=== PATIENT | male | born 1965 | race Caucasian/White ===

== ENCOUNTER 2021-09-27 13:55 | Outpatient (CLI) | payer OTHER, SELFPAY | END 2021-10-01 09:50 | disposition home or self-care (01) | LOC: PHYS 13:58 | PROVIDERS: Family Provider Family Medicine; PCP Family Medicine; Referring Provider Family Medicine; Visit Provider Family Medicine | DX: R20.0 Anesthesia of skin (principal) | CPT/HCPCS: 95886; 95910 ==

== ENCOUNTER 2022-04-02 09:46 | Day surgery (SDC) | payer OTHER, SELFPAY ==
[2022-04-02 09:55] VITALS: BP 150/89; PULSE 73; RESP 18; TEMP 36.4; O2SAT 96; BMI 32.2
[2022-04-02] MEDS: LACTATED RINGERS 1,000 ML 200 ML IV (10:16)
--- NOTE | 2022-04-02 10:30 | SUR.PREOP ---
Patient drank about 4oz of black coffee at 0930. DR Pereira and Dr Encinas notified and report they will have to push it back. Patient is aware and spouse notified.
--- NOTE | 2022-04-02 11:19 | PM.HP.1 ---
History of Present Illness History of Present Illness Date Patient Seen: 04/02/22 Time Patient Seen: 11:19 Chief complaint: SCREENING COLONOSCOPY Narrative: The patient presents for colorectal screening. Colonoscopy 5 years ago reportedly normal. No personal or family history of colon cancer. On further history denies any recent gastrointestinal symptoms. No nausea, vomiting, abdominal pain, loss of appetite, unexplained weight loss, change in bowel habits, or blood per rectum. Patient History Family & Social History Social History: household members spouse Tobacco & Substance use: Smoking Status Never smoker alcohol intake current alcohol intake frequency 0-2 drinks per day Substance Use Type does not use Meds Home Medications and Allergies Home Medications Medication Instructions Recorded Confirmed Type CA PANTOTHENATE/FOLIC ACID/VIT 1 tab PO QDAY ##0 04/21/12 History (MULTIVITAMIN) sodium,potassium,mag sulfates 17.5 See Rx Instructions PO .COMPLEX 04/01/22 Rx gram-3.13 gram-1.6 gram oral soln #354 mL (Suprep Bowel Prep Kit) Lipitor 20 mg PO DAILY 04/02/22 04/02/22 History Allergies Allergy/AdvReac Type Severity Reaction Status Date / Time No Known Drug Allergies Allergy Verified 04/02/22 09:56 Exam Vital Signs (past 8 hours): - 04/02/22 09:55 Temperature 97.6 F Pulse Rate 73 Respiratory Rate 18 Blood Pressure 150/89 H Pulse Oximetry 96 Oxygen Delivery Method Room Air Oxygen Delivery Method Room Air Narrative Exam Narrative: General adult man alert oriented no acute distress Assessment & Plan Assessment & Plan narrative: The patient requires colorectal screening and colonoscopy is recommended. Technical details were discussed. Risks, benefits, alternatives explained. Risks including but not limited to myocardial infarction, aspiration, bleeding, pain, missed lesion, incomplete examination, need for further radiographic studies, colonic perforation, and need for major abdominal surgery were discussed. All questions were answered to their satisfaction, and they are in agreement with this plan. Time Spent With Patient Critical Care time: I spent a total of [] minutes of critical care time on this patient's care today; this time is exclusive of procedural time.
--- NOTE | 2022-04-02 11:20 | PM.OP.COLON ---
Operative Date/Time/Diagnoses Date of procedure: 04/02/22 Time of procedure: 11:21 Pre-op diagnosis: Colorectal screening Post-op diagnosis: same Procedure & Clinicians Study performed: Colonoscopy Same procedure as scheduled: Yes Indications: Colorectal screening Surgeon: Fernando Pereira Procedure Notes Procedure in detail: The history and physical was performed/updated and the patient is ASA class is 2. The procedure was discussed in detail with the patient. Potential risks complications including infection, bleeding, missed diagnosis, perforation, need for surgery, and were explained. Their questions were answered and informed consent was obtained. Patient was brought to the procedure room and placed standard monitoring equipment. The patient's vital signs were monitored continuously throughout the entire procedure. Prior to starting time-out was performed. The patient was placed in the left lateral recumbent position. Procedural sedation was administered by anesthesia. Examination began with a thorough inspection of the perianal area there was no evidence of fissures, fistulae, external hemorrhoids or cutaneous malignancy. The colonoscopy scope was then placed into the anal canal and was advanced to the cecum, which was identified by the ileocecal valve, the appendiceal orifice and the confluence of the taenia. The scope was then slowly withdrawn examining colon thoroughly in all directions, irrigating it of any residual stool. 1. No masses polyps or inflammation 2. Nguyen diverticulosis 3. Internal hemorrhoids The patient tolerated the procedure well. They will be discharged once criteria are met. The prep was of good/excellent quality. The withdrawl time was 7 minutes. Specimen(s): none sent Impression: Normal colonoscopy Post-procedure Recommendations: Colonoscopy in 10 years and High fiber diet Disposition: same day surgery
[2022-04-02 11:48] VITALS: BP 122/80; PULSE 70; RESP 12; TEMP 36.6; O2SAT 95
[2022-04-02 11:52] VITALS: BP 125/80; PULSE 61; RESP 12; O2SAT 94
[2022-04-02 11:57] VITALS: BP 121/84; PULSE 61; RESP 12; TEMP 36.4; O2SAT 95
[2022-04-02 12:06] VITALS: BP 119/80; PULSE 60; RESP 14; TEMP 36.3; O2SAT 96
== END 2022-04-02 12:19 | disposition home or self-care (01) ==
PROVIDERS: Family Provider Family Medicine; PCP Family Medicine; Referring Provider Surgery; Visit Provider Surgery
PROC: 0DJD8ZZ Inspection of Lower Intestinal Tract, Via Natural or Artificial Opening Endoscopic (ICD-10-PCS; CPT 45378; principal; 2022-04-02 10:45)
DX: Z12.11 Encounter for screening for malignant neoplasm of colon (principal); K57.30 Diverticulosis of large intestine without perforation or abscess without bleeding; K64.8 Other hemorrhoids
CPT/HCPCS: 45378; J2704; J3010

== ENCOUNTER → 2022-07-05 08:15 | Outpatient (CLI) | payer OTHER, SELFPAY ==
--- NOTE | 2022-07-05 | DI.CT.S_ITS ---
PROCEDURE: CT SINUS SCREEN WO CON INDICATIONS: Chronic pansinusitis TECHNIQUE: Noncontrast 3.0 mm axial images acquired from the frontal sinuses to the mid-sella, with coronal and sagittal reformats. For radiation dose reduction, the following was used: automated exposure control, adjustment of mA and/or kV according to patient size. COMPARISON: [facility], CT, SINUS SCREEN WO CONTRAST, 08/24/2013, 8:32. FINDINGS: Image quality: Excellent. Maxillary Sinuses: Small retention cysts noted in the floors of both maxillary sinuses measuring up to 8 x 12 mm Ethmoid Air Cells: No bony remodeling or destruction. Sinuses are clear. Sphenoid Sinuses: No bony remodeling or destruction. Sinuses are clear. Frontal Sinuses: No bony remodeling or destruction. Sinuses are clear. Left frontal sinus is not pneumatized Ostiomeatal Complexes: Ostiomeatal complexes are patent. No Radha cells. Miscellaneous: Visualized intra-orbital contents are normal. No amy bullosa or paradoxical turbinate curvature. No nasal septal deviation. Atherosclerotic vascular calcification noted in the cavernous segments of both internal carotid arteries IMPRESSION: Small maxillary sinus retention cysts. Approved by: Samir Lynch M.D. on 07/05/2022 at 14:03
== END ==
PROVIDERS: Family Provider Family Medicine; PCP Family Medicine; Referring Provider Otolaryngology; Visit Provider Otolaryngology
DX: J32.4 Chronic pansinusitis (principal); J34.1 Cyst and mucocele of nose and nasal sinus
CPT/HCPCS: 70486

== ENCOUNTER 2023-09-18 08:20 | Emergency (ER) | payer OTHER, SELFPAY ==
[2023-09-18] VITALS (15 sets, daily range): BP systolic 107–134; BP diastolic 61–80; PULSE 66–73; RESP 15–24; TEMP 36.9; O2SAT 97–100; BMI 32.8
--- NOTE | 2023-09-18 08:27 | EKG_ITS ---
[address] [address] Test Date: 2023-09-18 Pat Name: Patel Bradford Department: [facility] Room: Gender: Male Payment Poster: KIRSTIN : 1965 Requested By: Order Number: [id number] Reading MD: Lenard Bates Measurements Intervals [place] Rate: 66 P: -2 LA: 186 QRS: 1 QRSD: 100 T: 19 QT: 404 QTc: 423 Interpretive Statements Normal sinus rhythm Inferior infarct , age undetermined Electronically Signed On 09-18-2023 17:13:52 PDT by Lenard Bates
--- NOTE | 2023-09-18 08:27 | DI.RAD.S_ITS ---
PROCEDURE: XR CHEST 1V INDICATIONS: chest pain TECHNIQUE: One view of the chest was acquired. COMPARISON: None. FINDINGS: Surgical changes and devices: None. Lungs and pleura: Lungs are clear. No pleural effusions or pneumothorax. Mediastinum: Mediastinal contours appear normal. Heart size is normal. Bones and chest wall: No suspicious bony lesions. Overlying soft tissues appear unremarkable. IMPRESSION: No acute cardiopulmonary abnormality is seen. Dictated by: Audra Palomo MD, PhD on 09/18/2023 at 9:10 Approved by: Audra Palomo MD, PhD on 09/18/2023 at 9:10
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
[2023-09-18 08:42] LABS: Add Manual Diff / Slide Review NO; Basophils Absolute Auto 0 /uL (0-100); Basophils Percent Auto 0.2 % (0-2); Eosinophils Absolute Auto 0 /uL (0-450); Eosinophils Percent Auto 0.4 % (2-4); Hematocrit 38.3 % (41-53); Hemoglobin 12.8 g/dL (13.5-17.5); Lymphocytes Absolute Auto 3400 /uL (1100-4500); Lymphocytes Percent Auto 30.2 % (25-40); Mean Corpuscular HGB Conc 33.5 % (30-36); Mean Corpuscular Hemoglobin 30.9 PG (26-34); Mean Corpuscular Volume 92.4 fL (80-100); Monocytes Absolute Auto 1000 /uL (0-900); Monocytes Percent Auto 8.9 % (3-14); Neutrophils Absolute Auto 6800 /uL (1500-7000); Neutrophils Percent Auto 60.3 % (50-75); Platelet Count 279 X10^3/uL (150-400); Red Blood Cell Count 4.15 X10^6/uL (4.5-5.9); Red Cell Distribution Width 13.1 % (11.6-14.8); White Blood Cell Count 11.3 X10^3/uL (4.5-11.0)
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
[2023-09-18 08:49] LABS: INR 1.1 (0.9-1.3); Prothrombin Time 12.2 SECONDS (9.4-12.5)
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
[2023-09-18 08:52] LABS: PTT Partial Thromboplastin Tim 27 SECONDS (25.1-36.5)
[2023-09-18 08:54] LABS: Alanine Aminotransferase 25 IU/L (<50); Albumin 3.8 g/dL (3.5-5.0); Albumin Globulin Ratio 1.6 (1.0-2.8); Alkaline Phosphatase 56 U/L (38-126); Aspartate Aminotransferase 22 IU/L (17-59); BUN Creatinine Ratio 18.7 (6-22); Bilirubin Total 0.7 mg/dL (0.2-1.3); Blood Urea Nitrogen 20 mg/dL (9-20); Calcium 8.3 mg/dL (8.4-10.2); Carbon Dioxide 27 mmol/L (22-32); Chloride 108 mmol/L (98-107); Creatine Kinase 123 U/L (55-170); Estimated Glomerular Filt Rate > 60 mL/min (>60); Globulin 2.4 g/dL (1.7-4.1); Glucose 151 mg/dL (80-110); HEMOLYSIS < 15 (0-50); Lipase 63 U/L (23-300); Potassium 4.2 mmol/L (3.4-5.1); Sodium 139 mmol/L (137-145); Total Protein 6.2 g/dL (6.3-8.2)
[2023-09-18 09:06] LABS: NT-proBNP (BNP-Adult 18+) 54 pg/mL (<125); Troponin I < 0.012 ng/mL (0.01-0.034)
== END 2023-09-18 10:35 | disposition home or self-care (01) ==
PROVIDERS: Emergency Provider Emergency Medicine; Family Provider Family Medicine; PCP Family Medicine
DX: S70.12XA Contusion of left thigh, initial encounter (principal); R55 Syncope and collapse; R07.9 Chest pain, unspecified; S09.92XA Unspecified injury of nose, initial encounter; V00.141A Fall from scooter (nonmotorized), initial encounter
CPT/HCPCS: 36415; 70450; 70486; 71045; 73502; 80053; 82550; 83690; 83735; 83880; 84484; 85025; 85610; 85730; 93005; 99284

== ENCOUNTER → 2023-09-30 09:24 | Outpatient (CLI) | payer OTHER, SELFPAY ==
--- NOTE | 2023-09-30 09:26 | DI.RAD.S_ITS ---
PROCEDURE: XR ANKLE RT MIN 3V INDICATIONS: ANKLE PAIN TECHNIQUE: 4 views of the ankle were acquired. COMPARISON: [facility], CR, XR FOOT 3 VIEWS WEIGHT BEARING RIGHT, 08/21/2023, 8:55. FINDINGS: Bones: No fractures or dislocations. Ankle mortise is normally aligned. Tiny ossific densities inferior to the medial malleolus. Degenerative changes in the midfoot with dorsal osteophytosis. No suspicious bony lesions. Soft tissues: Small tibiotalar joint effusion. Soft tissue swelling overlying the medial malleolus. Achilles tendon appears normal. Small plantar and Achilles calcaneal enthesophytes. Vascular calcifications. IMPRESSION: Tiny ossific densities inferior to the medial malleolus with soft tissue swelling is suggestive of gout versus a tiny avulsion fracture. If clinically warranted, consider an MRI for further evaluation. Dictated by: Kirsty Salgado M.D. on 09/30/2023 at 14:58 Approved by: Kirsty Salgado M.D. on 09/30/2023 at 15:19
== END ==
PROVIDERS: Family Provider Family Medicine; PCP Family Medicine; Referring Provider Family Medicine; Visit Provider Family Medicine
DX: M25.571 Pain in right ankle and joints of right foot (principal); M79.89 Other specified soft tissue disorders; M77.31 Calcaneal spur, right foot; M25.474 Effusion, right foot
CPT/HCPCS: 73610

== ENCOUNTER 2023-12-05 06:28 | Day surgery (SDC) | payer OTHER, SELFPAY ==
[2023-12-03 07:49] VITALS: BMI 31.9
[2023-12-05 07:04] VITALS: BP 139/89; PULSE 68; RESP 16; TEMP 36.2; O2SAT 96; BMI 31.9
[2023-12-05] MEDS: ACETAMINOPHEN 325 MG TABLET 975 MG PO (07:18)
[2023-12-05] MEDS: LACTATED RINGERS 1,000 ML 42 ML IV (07:19)
[2023-12-05] MEDS: CEFAZOLIN 2 GM/100 ML PREMIX 100 ML IV (07:40)
--- NOTE | 2023-12-05 07:41 | P.OP_ITS ---
Operative Date/Time/Diagnoses Date of procedure: 12/05/23 Time of procedure: 07:41 Pre-op diagnosis: Right great toe soft tissue mass and bunion Post-op diagnosis: other (Right great toe joint gouty arthritis and bunion) Procedure & Clinicians Procedure: Right bunionectomy with gouty tophus tissue excision Same procedure as scheduled: Yes Indications: For 58-year-old male with is enlarged and sore bump on right foot great toe. Area appears to be consistent with bunion as well as soft tissue mass. Conservative measures failed to alleviate his pain and he wished to have surgical intervention at this time. We spoke about the risks and potential complications as well as expected outcomes of the procedure. Consent was signed and there was no contraindications to the procedure at this time. Surgeon: Roberta Russ Click Yes if Unassisted: Yes Anesthesia Type: General Operative Notes Findings: Significant investment in the soft tissue capsule and surrounding area of the joint as well as the rim and medial aspect of the 1st metatarsophalangeal joint of gouty tophus. Closure Type: primary Specimen(s): none sent (a piece of tissue from the foot invested with gouty tophus was placed to send but upon contacting the lab they were unable to accept tissue, only aspirate.) Estimated Blood Loss (mL): 10 Blood products transfused: none Procedure in detail: The patient was brought to the operating room and placed on the operating table in the supine position. Tourniquet was placed about the right ankle. Well padded appropriately aligned. After induction of general anesthesia a 1st metatarsophalangeal area of digital block was performed using the recorded injectables. The right foot and ankle were prepped and draped in the usual aseptic manner. The tourniquet was inflated. Incision was made over the right 1st metatarsal phalangeal joint. The incision was deepened through subcutaneous tissues being careful to identify and retract all vital neurovascular structures. All bleeders were cauterized and ligated as necessary. A medial capsulotomy was performed to the 1st MTPJ exposing the enlarged tissue and large amount of gouty tophus was present. He did also have somewhat of an enlarged 1st metatarsal head medial eminence. There was spurring on the dorsal 1st metatarsophalangeal joint and quite a bit of investment of tophus within the medial 1st metatarsal head. The central aspect of the 1st metatarsal head was clean of gouty tophus. The extensor to the hallux was a little bit attenuated but no tears were noted. The saw was used to resect the medial eminence. A rasp was used to reduce the sharp edges of the bone. As best as was able, I used various techniques to attempt to mobilize and remove the infiltrate from what I could of the gouty tissues. The capsule appeared to be what was making the most amount of enlargement of the soft tissue medially and I was able to thin down some of that capsule to allow for decompression of that location. The area was irrigated with copious amounts normal sterile saline. The great toe was placed in linear alignment and the medial 1st MTP redundant capsule was resected and repaired with Vicryl. The tourniquet was deflated and a prompt hyperemic response was seen in the foot. Deep and subcutaneous closure was closed performed with Vicryl, and Nylon suture to the skin. The foot was dressed with a lightly compressive sterile dressing and splint in alignment. Russell wilcox was then placed in a postoperative shoe and transferred to PACU with vital signs stable Complications: none Post-operative Condition: stable Disposition: PACU Plan for aftercare: Following a period of postoperative monitoring, the patient will be discharged to home on written and oral postoperative instructions including keeping the dressing dry and intact, no greater than 50% weight to the surgical foot, icing and elevating the foot when seated home. DVT prevention techniques have been reviewed. For the 1st postoperative visit the dressing will be changed and close to the 3rd postoperative week we will likely remove the sutures. I reviewed in detail the aspects of the procedure with his nurse will pass this information along to him as well as his who I contacted following the procedure. In regards to gout management, I have suggested that he discuss this with his primary care physician.
--- NOTE | 2023-12-05 07:41 | PM.PREOP ---
Pre-operative Note Interval Note History & Physical reviewed/Exam performed by Physician: Yes Changes to H&P: No
[2023-12-05] MEDS: BUPIVACAINE 0.5% (PF) 30 ML VIAL INJ (07:52)
--- NOTE | 2023-12-05 08:07 | SUR.OPER ---
Supine on padded OR bed, head on pillow, arms secured on padded arm boards at <90 degrees abduction, legs uncrossed, safety belt at thigh, blanket over abdomen and thighs, upper warmer in place, bump on right side under right upper leg.
[2023-12-05 09:15] VITALS: BP 126/77; PULSE 65; RESP 13; TEMP 36.2; O2SAT 96
[2023-12-05 09:20] VITALS: BP 126/78; PULSE 65; RESP 16; O2SAT 98
[2023-12-05 09:27] VITALS: BP 132/80; PULSE 64; RESP 14; O2SAT 98
[2023-12-05] MEDS: HYDROCODONE/ACET 5/325 TABLET 1 TAB PO (09:32)
[2023-12-05 09:34] VITALS: BP 122/78; PULSE 66; RESP 16; TEMP 36.2; O2SAT 98
[2023-12-05 09:54] VITALS: BP 126/66; PULSE 65; RESP 16; TEMP 36.2; O2SAT 98
== END 2023-12-05 10:02 | disposition home or self-care (01) ==
PROVIDERS: Family Provider Family Medicine; PCP Family Medicine; Referring Provider Podiatrist; Visit Provider Podiatrist
PROC: 0QBN0ZZ Excision of Right Metatarsal, Open Approach (ICD-10-PCS; CPT 28292; principal; 2023-12-05 07:45)
DX: M21.611 Bunion of right foot (principal); M1A.9XX1 Chronic gout, unspecified, with tophus (tophi)
CPT/HCPCS: 28292; J0690; J1100; J1885; J2405; J2704

== ENCOUNTER → 2023-12-11 07:28 | Outpatient (CLI) | payer OTHER, SELFPAY ==
--- NOTE | 2023-12-11 07:29 | DI.US.S_ITS ---
PROCEDURE: US SCROTUM INDICATIONS: PAININLEFT TESTICLE TECHNIQUE: Real-time scanning was performed of the scrotum and testicles, with image documentation. Color and pulse Doppler interrogation was performed of both testicles. COMPARISON: None. FINDINGS: Right: Testicle is normal in size at 5.1 x 3.1 x 2.9 cm, and homogenous in echotexture. Epididymis is normal in overall size and morphology. No hydrocele or varicoceles. Overlying scrotal skin is normal in thickness. Left: Testicle is normal in size at 5.2 x 2.5 x 2.8 cm, and homogeneous in echotexture. Epididymis is normal in overall size and morphology. No hydrocele or varicoceles. Overlying scrotal skin is normal in thickness. Doppler: Color and pulse Doppler demonstrate normal and symmetric arterial flow in both testicles. IMPRESSION: Normal scrotal ultrasound. No cause for patient's pain is identified. Dictated by: Kai Roper M.D. on 12/11/2023 at 16:09 Approved by: Kai Roper M.D. on 12/11/2023 at 16:10
== END ==
LOC: US 07:28
PROVIDERS: Family Provider Family Medicine; PCP Family Medicine; Referring Provider Family Medicine; Visit Provider Family Medicine
DX: N50.812 Left testicular pain (principal)
CPT/HCPCS: 76870

== ENCOUNTER → 2024-07-06 07:38 | Outpatient (CLI) | payer OTHER, SELFPAY ==
[2024-07-06 08:20] LABS: Add Manual Diff / Slide Review NO; Basophils Absolute Auto 0 /uL (0-100); Basophils Percent Auto 0.3 % (0-2); Eosinophils Absolute Auto 100 /uL (0-450); Eosinophils Percent Auto 1.1 % (2-4); Hematocrit 44.4 % (41-53); Hemoglobin 15.6 g/dL (13.5-17.5); Lymphocytes Absolute Auto 2500 /uL (1100-4500); Lymphocytes Percent Auto 40.9 % (25-40); Mean Corpuscular HGB Conc 35.1 % (30-36); Mean Corpuscular Hemoglobin 32.2 PG (26-34); Mean Corpuscular Volume 91.6 fL (80-100); Monocytes Absolute Auto 600 /uL (0-900); Monocytes Percent Auto 9.2 % (3-14); Neutrophils Absolute Auto 3000 /uL (1500-7000); Neutrophils Percent Auto 48.5 % (50-75); Platelet Count 228 X10^3/uL (150-400); Red Blood Cell Count 4.85 X10^6/uL (4.5-5.9); Red Cell Distribution Width 13.3 % (11.6-14.8); White Blood Cell Count 6.2 X10^3/uL (4.5-11.0)
[2024-07-06 08:48] LABS: Alanine Aminotransferase 36 IU/L (<50); Albumin 4.6 g/dL (3.5-5.0); Albumin Globulin Ratio 1.8 (1.0-2.8); Alkaline Phosphatase 62 U/L (38-126); Aspartate Aminotransferase 27 IU/L (17-59); BUN Creatinine Ratio 22.3 (6-22); Bilirubin Total 0.9 mg/dL (0.2-1.3); Blood Urea Nitrogen 25 mg/dL (9-20); Calcium 9.4 mg/dL (8.4-10.2); Carbon Dioxide 25 mmol/L (22-32); Chloride 103 mmol/L (98-107); Cholesterol 163 mg/dL (140-199); Estimated Glomerular Filt Rate > 60 mL/min (>60); Globulin 2.5 g/dL (1.7-4.1); Glucose 104 mg/dL (70-99); HDL Cholesterol 50 mg/dL (40-60); HEMOLYSIS < 15 (0-50); LDL Cholesterol Calculated 80 mg/dL (<100); Potassium 4.5 mmol/L (3.4-5.1); Sodium 137 mmol/L (137-145); Total Protein 7.1 g/dL (6.3-8.2); Triglycerides 164 mg/dL (35-150)
[2024-07-06 09:19] LABS: Thyroid Stimulating Hormone 1.99 uIU/mL (0.47-4.68)
[2024-07-06 09:20] LABS: Prostate Specific Antigen 2.17 ng/mL (0.10-4.00)
== END ==
LOC: LAB 07:40
PROVIDERS: Family Provider Family Medicine; PCP Family Medicine; Referring Provider Family Medicine; Visit Provider Family Medicine
DX: Z00.00 Encounter for general adult medical examination without abnormal findings (principal); Z12.5 Encounter for screening for malignant neoplasm of prostate; Z80.42 Family history of malignant neoplasm of prostate; R03.0 Elevated blood-pressure reading, without diagnosis of hypertension; E78.2 Mixed hyperlipidemia
CPT/HCPCS: 36415; 80053; 80061; 84153; 84443; 85025